=== PATIENT | male | born 1980 | race Caucasian/White ===

== ENCOUNTER → 2020-10-17 07:08 | Outpatient (CLI) | payer BC, SELFPAY ==
--- NOTE | 2020-10-17 07:11 | CT_ITS ---
STUDY: CT ABDOMEN AND PELVIS WITHOUT CONTRAST REASON FOR EXAM: Male, 39 years old. Right flank/groin pain x few months, intermittent dark urine. Prior hernia repair, hypertension. RADIATION DOSAGE (If Supplied By Facility): CTDIvol = ( 16.26 ) mGy, DLP = ( 1072.58 ) mGycm TECHNIQUE: Transaxial images were obtained from the dome of the diaphragm to the symphysis pubis without oral contrast, and without intravenous contrast. Sagittal and coronal images were reconstructed. Individualized dose optimization techniques were used for this CT. COMPARISON: None. FINDINGS: Infiltrate versus atelectasis at the right lung base adjacent to the right hemidiaphragm. The visualized portions of the heart are within normal limits. Normal liver. The patient is status post cholecystectomy. Normal spleen. Normal pancreas. Normal bilateral adrenal glands. Normal right kidney. Normal left kidney. Normal visualized stomach. Normal small intestine. There are scattered colonic diverticula consistent with diverticulosis. The appendix is visualized and appears normal. Normal abdominal aorta. Normal inferior vena cava. There is borderline retroperitoneal lymphadenopathy with enlarged nodes no greater than 10mm in the short axis diameter. Normal urinary bladder. There is a small umbilical hernia containing fat. Small bilateral inguinal hernias containing fat more prominent on the left side. Normal osseous structures. CT/Abdomen/Pelvis without Cont IMPRESSION: Right basilar atelectasis and/or infiltrate. Scattered sigmoid diverticula. Small bilateral inguinal hernias containing fat more prominent on the left side Electronically Signed: Baljeet Chopra MD at 8:22 EST , Service support ,
--- NOTE | 2020-10-17 07:20 | US_ITS ---
STUDY: SCROTUM ULTRASOUND REASON FOR EXAM: Male, 39 years old. RT TESTICULAR pain. TECHNIQUE: Ultrasound evaluation of the scrotum was performed with color Doppler and static romero-scale imaging. COMPARISON: None. FINDINGS: RIGHT TESTICLE INTRATESTICULAR: There is a normal size of the right testicle. The right testicle measures 4 cm x 2.7 cm x 2.1 cm. There is a homogenous echotexture. There is normal arterial and normal venous vascularity. There is no demonstrated right testicular mass or cyst. EXTRATESTICULAR: The epididymis is normal in size. The epididymis head measures 0.7 cm x 0.9 cm x 0.7 cm. There is normal vascularity of the epididymis. There is a well-defined cystic structure within the epididymis, without internal echoes, consistent with an epididymal cyst. It measures 3 mm x 3 mm x 3 mm. There is no demonstrated hydrocele. There is no demonstrated varicocele. There is no demonstrated extratesticular mass or cyst. LEFT TESTICLE INTRATESTICULAR: There is a normal size of the left testicle. The left testicle measures 3.5 cm x 2.8 cm x 1.9 cm. There is a homogenous echotexture. There is normal arterial and normal venous vascularity. There is no demonstrated left testicular mass or cyst. EXTRATESTICULAR: The epididymis is normal in size. The epididymis head measures 1 cm x 0.7 cm x 0.7 cm. There is normal vascularity of the epididymis. There is no demonstrated epididymal cystic structure. There is no demonstrated hydrocele. There is no demonstrated varicocele. There is no demonstrated extratesticular mass or cyst. US/Testicular with Arterial Flow IMPRESSION: Normal bilateral testicles.. Small right epididymal cyst measuring 3 mm x 3 mm x 3 mm. Electronically Signed: Baljeet Chopra MD at 8:25 EST , Service support ,
== END ==
LOC: CT 07:09
DX: N50.3 Cyst of epididymis (principal); N20.0 Calculus of kidney
CPT/HCPCS: 74176; 76870; 93976

== ENCOUNTER → 2021-08-10 15:51 | Outpatient (CLI) | payer BC, SELFPAY ==
--- NOTE | 2021-08-10 15:59 | CT_ITS ---
EXAM: CT MAXILLOFACIAL SINUSES WITHOUT INTRAVENOUS CONTRAST CLINICAL INDICATION: SINUSITIS Technologist Notes bilateral sinus pressure x years. TECHNIQUE: Helically acquired images were obtained of the maxillofacial sinuses without intravenous contrast. This CT exam was performed using one or more of the following dose reduction techniques: automated exposure control, adjustment of the mA and/or kV according to patient size, and/or use of iterative reconstruction technique. This report was created using [employer] report Connotate technology. COMPARISON: None. FINDINGS: MAXILLARY SINUSES: There is mild maxillary sinus disease. There is mild ethmoid sinus disease. There is frontal sinus disease. Ostiomeatal complexes are normally formed. SPHENOID SINUSES: Clear. FRONTAL SINUSES: See above. ETHMOID AIR CELLS: See above. NASAL CAVITY/SEPTUM: Nasal septum is midline. Nasal turbinates are unremarkable. BONES/JOINTS: Anterior cranial fossa is unremarkable. ORBITS: Unremarkable. DENTAL: Unremarkable as visualized. No periodontal osseous erosion. CT/Sinus/Facial Bone IMPRESSION: There is mild maxillary sinus disease. There is mild ethmoid sinus disease. There is frontal sinus disease. Electronically Signed: Aron Khanna MD at 16:30 EST , Service support ,
== END ==
LOC: CT 15:56
PROVIDERS: PCP Nurse Practitioner Family; Referring Provider Otolaryngology; Visit Provider Otolaryngology
DX: J32.9 Chronic sinusitis, unspecified (principal)
CPT/HCPCS: 70486